=== PATIENT | female | born 1990 | race Caucasian/White ===

== ENCOUNTER 2017-12-13 05:19 | Inpatient (IN) | payer BC, OTHER ==
[2017-12-13] MEDS ORDERED: Sodium Chloride 0.9% 10 ML Syringe FLUSH PRN (05:29)
[2017-12-13] MEDS ORDERED: ceFAZolin 2 GM in Premix Bag 1 BAG IV ONE (05:29)
[2017-12-13] MEDS ORDERED: Sodium Chloride 0.9% 2.5 ML Syringe FLUSH PRN (05:29)
[2017-12-13] MEDS ORDERED: Lactated Ringers 1,000 ML IV SCH ×2 (05:30→10:30)
[2017-12-13] MEDS ORDERED: Citric Acid/Sodium Citrate Solution 30 ML Cup PO SCH (05:30)
[2017-12-13] MEDS ORDERED: Oxytocin/0.9 % Sodium Chloride 30 UNIT/500 ML BAG IV SCH (05:30)
--- NOTE | 2017-12-13 08:52 | PCM.PREANE ---
Preanesthetic Assessment - Anesthesia/Transfusion/Family Hx Anesthesia History: Prior Anesthesia Without Reaction Transfusion History: No Prior Transfusion(s) - Review of Systems General: No Symptoms Pulmonary: No Symptoms Cardiovascular: No Symptoms Gastrointestinal: No Symptoms Neurological: No Symptoms Other: Reports: None - Physical Assessment NPO Status Date: 12/12/17 NPO Status Time: 23:00 Height: 5 ft 5 in Weight: 109.316 kg ASA Class: 2 Mental Status: Alert & Oriented x3 Airway Class: Mallampati = 2 Dentition: Reports: Normal Dentition Thyro-Mental Finger Breadths: 3 Mouth Opening Finger Breadths: 3 ROM/Head Extension: Full Lungs: Clear to Auscultation, Normal Respiratory Effort Cardiovascular: Regular Rate, Regular Rhythm - Lab Values: Laboratory Last Values WBC 9.82 K/uL (4.0-11.0) 12/13/17 05:48 RBC 4.48 M/uL (4.30-5.90) 12/13/17 05:48 Hgb 13.3 g/dL (12.0-16.0) 12/13/17 05:48 Hct 38.7 % (36.0-46.0) 12/13/17 05:48 MCV 86.4 fL (80.0-98.0) 12/13/17 05:48 MCH 29.7 pg (27.0-32.0) 12/13/17 05:48 MCHC 34.4 g/dL (31.0-37.0) 12/13/17 05:48 RDW Std Deviation 43.5 fl (28.0-62.0) 12/13/17 05:48 RDW Coeff of Aureliano 14 % (11.0-15.0) 12/13/17 05:48 Plt Count 194 K/uL (150-400) 12/13/17 05:48 MPV 10.10 fL (7.40-12.00) 12/13/17 05:48 Nucleated RBC % 0.0 /100WBC 12/13/17 05:48 Nucleated RBCs # 0 K/uL 12/13/17 05:48 Blood Type O POSITIVE 12/13/17 05:48 Antibody Screen NEGATIVE 12/13/17 05:48 - Allergies Allergies/Adverse Reactions: Allergies Allergy/AdvReac Type Severity Reaction Status Date / Time Penicillins Allergy Hives Verified 12/13/17 05:28 Sulfa (Sulfonamide Allergy Hives Verified 12/13/17 05:28 Antibiotics) - Acknowledgements Anesthesia Type Planned: Spinal (duramorph) Pt an Appropriate Candidate for the Planned Anesthesia: Yes Alternatives and Risks of Anesthesia Discussed w Pt/Guardian: Yes Pt/Guardian Understands and Agrees with Anesthesia Plan: Yes PreAnesthesia Questionnaire HEENT History: Reports: None Cardiovascular History: Reports: None Respiratory History: Reports: Asthma Other Respiratory History: sports induced asthma Gastrointestinal History: Reports: GERD, Irritable Bowel Syndrome, Other (See Below) Other Gastrointestinal History: heartburn during Genitourinary History: Reports: None BODY SHOP MANAGER History: Reports: None, : 1 Para: 0 LMP (Approximate): Other (See Below) (NO FHR NOTED ON ADMISSION FOR ) Musculoskeletal History: Reports: Fracture Other Musculoskeletal History: hx fx elbow Neurological History: Reports: Concussion Psychiatric History: Reports: None Endocrine/Metabolic History: Reports: Obesity/BMI 30+ Hematologic History: Reports: None Immunologic History: Reports: None Oncologic (Cancer) History: Reports: None Dermatologic History: Reports: Eczema - Infectious Disease History Infectious Disease History: Reports: None - Past Surgical History Head Surgeries/Procedures: Reports: None GI Surgical History: Reports: Appendectomy Musculoskeletal Surgical History: Reports: Other (See Below) Other Musculoskeletal Surgeries/Procedures:: hx rt ankle reconstruction x2, 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 - SUBSTANCE USE Smoking Status *Q: Never Smoker Recreational Drug Use History: No - HOME MEDS Home Medications: Home Meds Juice Plus 1 tab PO DAILY 12/10/17 [History] PNV95/Ferrous Fumarate/FA [ Vitamin Tablet] 1 tab CHEW DAILY 12/10/17 [ History] - CURRENT (IN HOUSE) MEDS Current Meds: Current Medications Citric Acid/Sodium Citrate (Bicitra Solution) 30 ml PO .ONCE [facility] Lactated Ringer's (Ringers, Lactated) 1,000 mls @ 500 mls/hr IV .BOLUS [facility] Last Admin: 12/13/17 06:08 Dose: 500 mls/hr Oxytocin/Sodium Chloride (Oxytocin 30 Unit/500 Ml-Ns) 30 unit in 500 mls @ 250 mls/hr IV TITRATE [facility] Sodium Chloride (Saline Flush) 10 ml FLUSH ASDIRECTED PRN PRN Reason: Keep Vein Open Sodium Chloride (Saline Flush) 2.5 ml FLUSH ASDIRECTED PRN PRN Reason: Keep Vein Open Discontinued Medications Cefazolin Sodium/Dextrose 2 gm (/ Premix) 50 mls @ 100 mls/hr IV ONETIME ONE Stop: 12/13/17 05:58
[2017-12-13] MEDS ORDERED: Clindamycin Phosphate in D5W 50 ML IV ONE (08:54)
[2017-12-13] MEDS ORDERED: Morphine PF 1 MG/ML Amp ONE (09:00)
[2017-12-13] MEDS ORDERED: Phenylephrine/Normal Saline 100 MCG/ML 10 ML Syringe ONE (09:21)
[2017-12-13] MEDS ORDERED: Phenylephrine 1% 10 MG/ML SDV ONE (09:21)
[2017-12-13] MEDS ORDERED: Ondansetron 4 MG/2 ML SDV ONE (09:24)
[2017-12-13] MEDS ORDERED: Oxytocin 10 Units/1 ML SDV ONE (09:31)
[2017-12-13] MEDS ORDERED: Acetaminophen/oxyCODONE 325-5 MG Tab PO PRN ×2 (10:17→10:21)
[2017-12-13] MEDS ORDERED: Nalbuphine 10 MG/1 ML Vial IVPUSH PRN (10:18)
[2017-12-13] MEDS ORDERED: Naloxone 0.4 MG/ML Syringe IVPUSH PRN (10:18)
[2017-12-13] MEDS ORDERED: diphenhydrAMINE 50 MG/ML SDV IVPUSH PRN ×2 (10:18→10:21)
[2017-12-13] MEDS ORDERED: fentaNYL 100 MCG/2 ML SDV IVPUSH PRN (10:18)
[2017-12-13] MEDS ORDERED: Aluminum Hydroxide/Magnesium Hydroxide/Simethicone Susp 30 ML Cup PO PRN (10:21)
[2017-12-13] MEDS ORDERED: Simethicone 80 MG Tab.Chew PO PRN (10:21)
[2017-12-13] MEDS ORDERED: Ondansetron 4 MG/2 ML SDV IV PRN (10:21)
[2017-12-13] MEDS ORDERED: Ibuprofen 800 MG Tab PO PRN (10:21)
[2017-12-13] MEDS ORDERED: Bisacodyl 10 MG Supp RECTAL PRN (10:21)
[2017-12-13] MEDS ORDERED: Lanolin 100% Cream 7 GM Tube TOP PRN (10:21)
--- NOTE | 2017-12-13 10:36 | PCM.OPNOTE ---
- General Post-Op/Procedure Note Date of Surgery/Procedure: 12/13/17 Operative Procedure(s): Primary LTCS Findings: Non viable term male , APGARs 0, 0 weight is pending. Placenta appeared intact. Meconium stained amniotic fluid. There was a loose nuchal cord (do not believe etiology for demise) Pre Op Diagnosis: 39 week IUP. Suspected macrosomia/polyhydramnios. demise Post-Op Diagnosis: Same Anesthesia Technique: Spinal Primary Surgeon: Pati Rivera Pathology: placenta to path Fluid Replacement, Intraop: 1,000 EBL in mLs: 600 Complications: None known Condition: Good Free Text/Narrative:: Dictation [id number]
[2017-12-13] MEDS: Ketorolac 30 MG/ML SDV IVPUSH SCH ×3 (11:10→22:21)
[2017-12-13] MEDS ORDERED: Scopolamine 1.5 MG Transdermal Patch TRDERM PRN (12:33)
--- NOTE | 2017-12-13 13:10 | PCM.POSTAN ---
POST ANESTHESIA ASSESSMENT - MENTAL STATUS Mental Status: Alert, Oriented - RESPIRATORY Respiratory Status: Respiratory Rate WNL, Airway Patent, O2 Saturation Stable - CARDIOVASCULAR CV Status: Pulse Rate WNL, Blood Pressure Stable - GASTROINTESTINAL GI Status: No Symptoms - POST OP HYDRATION Hydration Status: Adequate & Stable
--- NOTE | 2017-12-13 17:06 | US ---
EXAM DATE: 12/13/17 PATIENT'S AGE: 27 Patient: VALERIE KIRKPATRICK Facility: [place], [place] Site . Site : [id number] Study: US OB Pelvis [id number]/16/2018 7:01:04 AM Ordering Physician: Miguel Krueger Final Report: HISTORY: No heart tones. FINDINGS: A single static image of head and 3 cine series of the chest were obtained. Study was performed with ordering physician at the bedside. No cardiac motion is identified on submitted images. IMPRESSION: No cardiac motion identified on submitted images suspicious for demise. Dictated by Jana Patel MD @ 12/13/2017 7:29:39 AM Dictated by: Jana Patel MD @ 12/13/2017 07:29:59 (Electronic Signature) Report Signed by Proxy. [facility]
[2017-12-13] MEDS ORDERED: Promethazine 25 MG/ML SDV IM ONE (18:33)
--- NOTE | 2017-12-13 18:43 | PCM.SN ---
- Free Text/Narrative Note: Patient is struggling with nausea, otherwise pain is controlled. Family has been here and supportive. is in the room with family. Has good urine output and VS are stable. Has a scopolamine patch on and has had zofran. Will trial phenergan. Continue postoperative cares. Pastoral services coming soon. They have made arrangements with [facility]. They are doing well overall and grieving appropriately.
[2017-12-13] MEDS: Docusate Sodium 100 MG Cap PO SCH (22:21)
[2017-12-14] MEDS: Ketorolac 30 MG/ML SDV IVPUSH SCH ×3 (04:45→18:56)
--- NOTE | 2017-12-14 09:38 | PCM.PNPP ---
- General Info Date of Service: 12/21/17 Subjective Update: Patient is tearful this morning. She did rest some last night. Pastoral services came in and baptized her son, which she appreciated. She denies headaches or visual changes. She has been up in her room. Catheter removed, but has not voided yet. Lochia is dissipating. Pain is controlled. Nausea is resolved and tolerating regular diet. - Review of Systems General: Denies: Fever Pulmonary: Denies: Shortness of Breath Cardiovascular: Denies: Chest Pain, Palpitations, Lightheadedness Gastrointestinal: Reports: Flatus. Denies: Nausea, Vomiting Genitourinary: Denies: Flank Pain - General Info Date of Service: 12/14/17 - Patient Data Vital Signs - Most Recent: Last Vital Signs Temp 36.2 C 12/13/17 20:00 Pulse 74 12/14/17 08:00 Resp 16 12/14/17 08:00 BP 128/78 12/14/17 08:00 Pulse Ox 97 12/14/17 08:00 Weight - Most Recent: 109.316 kg I&O - Last 24 Hours: Intake & Output 12/13/17 12/14/17 12/14/17 22:59 06:59 14:59 Intake Total 1311 Output Total 1261 Balance 50 Lab Results - Last 24 Hours: Laboratory Results - last 24 hr 12/13/17 12/13/17 12/13/17 Range/Units 10:30 10:30 10:30 WBC (4.0-11.0) K/uL RBC (4.30-5.90) M/uL Hgb (12.0-16.0) g/dL Hct (36.0-46.0) % MCV (80.0-98.0) fL MCH (27.0-32.0) pg MCHC (31.0-37.0) g/dL RDW Std Deviation (28.0-62.0) fl RDW Coeff of Aureliano (11.0-15.0) % Plt Count (150-400) K/uL MPV (7.40-12.00) fL Neut % (Auto) (48.0-80.0) % Lymph % (Auto) (16.0-40.0) % [place] % (Auto) (0.0-15.0) % Eos % (Auto) (0.0-7.0) % Baso % (Auto) (0.0-1.5) % Neut # (Auto) (1.4-5.7) K/uL Lymph # (Auto) (0.6-2.4) K/uL [place] # (Auto) (0.0-0.8) K/uL Eos # (Auto) (0.0-0.7) K/uL Baso # (Auto) (0.0-0.1) K/uL Nucleated RBC % /100WBC Nucleated RBCs # K/uL INR 0.93 APTT 28.0 (18.6-31.3) SEC Fibrinogen 450 H (215-411) mg/dL BUN 6 (6.0-23.0) mg/dL Hemoglobin A1c 5.3 (4.5-6.2) % TSH 3rd Generation 2.15 (0.47-5.0) uIU/mL 12/14/17 Range/Units 06:02 WBC 11.79 H (4.0-11.0) K/uL RBC 3.38 L (4.30-5.90) M/uL Hgb 9.9 L (12.0-16.0) g/dL Hct 29.7 L (36.0-46.0) % MCV 87.9 (80.0-98.0) fL MCH 29.3 (27.0-32.0) pg MCHC 33.3 (31.0-37.0) g/dL RDW Std Deviation 46.2 (28.0-62.0) fl RDW Coeff of Aureliano 14 (11.0-15.0) % Plt Count 185 (150-400) K/uL MPV 9.90 (7.40-12.00) fL Neut % (Auto) 79.8 (48.0-80.0) % Lymph % (Auto) 10.5 L (16.0-40.0) % [place] % (Auto) 9.4 (0.0-15.0) % Eos % (Auto) 0.2 (0.0-7.0) % Baso % (Auto) 0.1 (0.0-1.5) % Neut # (Auto) 9.4 H (1.4-5.7) K/uL Lymph # (Auto) 1.2 (0.6-2.4) K/uL [place] # (Auto) 1.1 H (0.0-0.8) K/uL Eos # (Auto) 0.0 (0.0-0.7) K/uL Baso # (Auto) 0.0 (0.0-0.1) K/uL Nucleated RBC % 0.0 /100WBC Nucleated RBCs # 0 K/uL INR APTT (18.6-31.3) SEC Fibrinogen (215-411) mg/dL BUN (6.0-23.0) mg/dL Hemoglobin A1c (4.5-6.2) % TSH 3rd Generation (0.47-5.0) uIU/mL Med Orders - Current: Current Medications Al Hydroxide/Mg Hydroxide (Mag-Al Plus) 30 ml PO Q8H PRN PRN Reason: Heartburn Bisacodyl (Dulcolax) 10 mg RECTAL .ONCE PRN PRN Reason: Constipation Citric Acid/Sodium Citrate (Bicitra Solution) 30 ml PO .ONCE [facility] Last Admin: 12/13/17 09:02 Dose: 30 ml Diphenhydramine HCl (Benadryl) 25 - 50 mg IVPUSH Q4H PRN PRN Reason: Itching Stop: 12/14/17 10:20 Diphenhydramine HCl (Benadryl) 25 mg IVPUSH Q6H PRN PRN Reason: Itching or Nausea Docusate Sodium (Colace) 100 mg PO BID [facility] Last Admin: 12/13/17 22:21 Dose: 100 mg Emollient Ointment (Lansinoh Hpa) 0 gm TOP ASDIRECTED PRN PRN Reason: Sore Nipples Fentanyl (Sublimaze) 50 - 100 mcg IVPUSH Q30M PRN PRN Reason: Breakthrough Pain Stop: 12/14/17 10:18 Lactated Ringer's (Ringers, Lactated) 1,000 mls @ 500 mls/hr IV .BOLUS [facility] Last Admin: 12/13/17 06:08 Dose: 500 mls/hr Oxytocin/Sodium Chloride (Oxytocin 30 Unit/500 Ml-Ns) 30 unit in 500 mls @ 250 mls/hr IV TITRATE [facility] Lactated Ringer's (Ringers, Lactated) 1,000 mls @ 125 mls/hr IV ASDIRECTED [facility] Ibuprofen (Motrin) 800 mg PO Q8H PRN PRN Reason: mild pain or fever Ketorolac Tromethamine (Toradol) 30 mg IVPUSH Q6H [facility]SES Stop: 12/14/17 10:31 Last Admin: 12/14/17 04:45 Dose: 30 mg Nalbuphine HCl (Nubain) 2.5 - 10 mg IVPUSH Q3H PRN PRN Reason: Pruritis Stop: 12/14/17 10:19 Naloxone HCl (Narcan) 0.1 mg IVPUSH ONETIME PRN PRN Reason: Respiratory Depression Stop: 12/14/17 10:20 Ondansetron HCl (Zofran) 4 mg IV Q4H PRN PRN Reason: Nausea/Vomiting Last Admin: 12/13/17 15:42 Dose: 4 mg Oxycodone/Acetaminophen (Percocet 325-5 Mg) 1 - 2 tab PO Q4H PRN PRN Reason: Breakthrough Pain Stop: 12/14/17 10:15 Oxycodone/Acetaminophen (Percocet 325-5 Mg) 1 tab PO Q4H PRN PRN Reason: Pain (moderate 4-6) Oxycodone/Acetaminophen (Percocet 325-5 Mg) 2 tab PO Q4H PRN PRN Reason: Pain (moderate 4-6) Scopolamine (Transderm-Scop) 1.5 mg TRDERM Q72H PRN PRN Reason: Nausea/Vomiting Last Admin: 12/13/17 13:14 Dose: 1.5 mg Simethicone (Simethicone) 80 mg PO Q4H PRN PRN Reason: Gas Sodium Chloride (Saline Flush) 10 ml FLUSH ASDIRECTED PRN PRN Reason: Keep Vein Open Sodium Chloride (Saline Flush) 2.5 ml FLUSH ASDIRECTED PRN PRN Reason: Keep Vein Open Discontinued Medications Cefazolin Sodium/Dextrose 2 gm (/ Premix) 50 mls @ 100 mls/hr IV ONETIME ONE Stop: 12/13/17 05:58 Last Admin: 12/13/17 11:30 Dose: Not Given Clindamycin Phosphate (Cleocin In D5w) Confirm Administered Dose 50 mls @ as directed IV .STK-MED ONE Stop: 12/13/17 08:55 Last Admin: 12/13/17 11:30 Dose: Not Given Morphine Sulfate (Duramorph Pf) Confirm Administered Dose 1 mg .ROUTE .STK-MED ONE Stop: 12/13/17 09:01 Ondansetron HCl (Zofran) Confirm Administered Dose 4 mg .ROUTE .STK-MED ONE Stop: 12/13/17 09:25 Oxytocin (Pitocin) Confirm Administered Dose 20 unit .ROUTE .STK-MED ONE Stop: 12/13/17 09:32 Phenylephrine HCl (Phenylephrine In Ns 100 Mcg/Ml) Confirm Administered Dose 1 mg .ROUTE .STK-MED ONE Stop: 12/13/17 09:22 Phenylephrine HCl (Dilshad-Synephrine) Confirm Administered Dose 10 mg .ROUTE .STK- MED ONE Stop: 12/13/17 09:22 Promethazine HCl (Phenergan) 12.5 mg IM ONETIME ONE Stop: 12/13/17 18:34 Last Admin: 12/13/17 19:46 Dose: 12.5 mg - Interaction Disposition, : [place] in Room with Family Support Person: - Recovery Exam Fundal Tone: Firm Fundal Level: 2 Fingerbreadths Below Umbilicus Fundal Placement: Midline Lochia Amount: Small Lochia Color: Rubra/Red Perineum Description: Intact, Minimal Bruising/Swelling Episiotomy/Laceration: Approximated Bladder Status: Indwelling Catheter in Place Urinary Elimination: Indwelling Catheter - Exam General: Alert, Oriented Lungs: Normal Respiratory Effort Cardiovascular: Regular Rate, Regular Rhythm GI/Abdominal Exam: Normal Bowel Sounds, Soft. No: Guarding, Rebound Extremities: Pedal Edema (1+). No: Harsha's Sign Neurological: Reflexes Equal Bilateral (not hyperreflexic, no clonus) Psy/Mental Status: Alert - Problem List & Annotations (1) demise in romero greater than 22 weeks gestation, antepartum SNOMED Code(s): 97841457 Code(s): O36.4XX0 - MATERNAL CARE FOR INTRAUTERINE , NOT APPLICABLE OR UNSP Status: Acute Current Visit: Yes - Problem List Review Problem List Initiated/Reviewed/Updated: Yes - My Orders Last 24 Hours: My Active Orders 12/13/17 10:21 Patient Status [ADT] Routine Ambulate [RC] PER UNIT ROUTINE Communication Order [RC] PER UNIT ROUTINE May Shower [RC] ASDIRECTED Notify Provider Intake and Out [RC] ASDIRECTED Notify Provider Vital Signs [RC] ASDIRECTED RT Incentive Spirometry [RC] Q2HWA Acetaminophen/oxyCODONE [Percocet 325-5 MG] 1 tab PO Q4H PRN Acetaminophen/oxyCODONE [Percocet 325-5 MG] 2 tab PO Q4H PRN Alum Hydrox/Mag Hydrox/Simeth [Mag-Al Plus] 30 ml PO Q8H PRN Bisacodyl [Dulcolax] 10 mg RECTAL .ONCE PRN Ibuprofen [Motrin] 800 mg PO Q8H PRN Lanolin [Lansinoh HPA] See Dose Instructions TOP ASDIRECTED PRN Ondansetron [Zofran] 4 mg IV Q4H PRN Simethicone 80 mg PO Q4H PRN diphenhydrAMINE [Benadryl] 25 mg IVPUSH Q6H PRN Abdominal Binder [OM.PC] Routine Assess Lochia [WOMSER] Per Unit Routine Assess Uterine Involution [WOMSER] Per Unit Routine Breast Pump [WOMSER] Per Unit Routine Heat Therapy [OM.PC] Routine Ice Therapy [OM.PC] Routine Peripheral IV Discontinue [OM.PC] Routine Sequential Compression Device [OM.PC] Per Unit Routine 12/13/17 10:22 Antiembolic Devices [RC] PER UNIT ROUTINE 12/13/17 10:30 ANTICARDIOLIPIN AB PANEL IGG/M [REF] Routine ANTITHROMBIN III ACTIVITY [REF] Routine FACTOR 5 LEIDEN MUTATION [REF] Routine LUPUS ANTICOAGULANT PANEL [REF] Routine PARVOVIRUS B19 IGG AND IGM [REF] Routine PROTHROMBIN 45340 MUTATION [REF] Routine RPR [REF] Routine Ketorolac [Toradol] 30 mg IVPUSH Q6H Lactated Ringers [Ringers, Lactated] 1,000 ml IV ASDIRECTED 12/13/17 15:13 CHROMO ANALYSIS, POC Routine 12/13/17 21:00 Docusate Sodium [Colace] 100 mg PO BID 12/14/17 06:02 CMP [COMPREHENSIVE METABOLIC PN,CMP] [CHEM] Routine 12/14/17 Breakfast Regular Diet [DIET] - Assessment Assessment:: POD 1 status post c section demise - Plan Plan:: Blood presssures elevated yesterday and through the night, improved today in 120s/70s. CBC is reassuring, will add CMP and UA to analysis. Ambulate today, may shower. Will reevaluate later this afternoon--patient very much would like to go home later today. If PIH work up is reassuring and blood pressures remain stable, will consider this option.
[2017-12-14 09:47] LABS: CHLORIDE,CL 104 mmol/L (98-110); SODIUM,NA 136 mmol/L (136-146)
[2017-12-14] MEDS: Docusate Sodium 100 MG Cap PO SCH (12:14)
[2017-12-14] MEDS: Acetaminophen/oxyCODONE 325-5 MG Tab PO PRN ×2 (12:56→19:18)
--- NOTE | 2017-12-14 15:21 | PCM48HPAN ---
Post Anesthesia Note - EVALUATION WITHIN 48HRS OF ANESTHETIC Vital Signs in Normal Range: Yes Patient Participated in Evaluation: Yes Respiratory Function Stable: Yes Airway Patent: Yes Cardiovascular Function Stable: Yes Hydration Status Stable: Yes Pain Control Satisfactory: Yes Nausea and Vomiting Control Satisfactory: Yes Mental Status Recovered: Yes Resp Rate: 16 - COMMENTS/OBSERVATIONS Free Text/Narrative:: Pt denies any problems associated with SAB. She has been ambulatory with no problems. Pt has appropriate affect for current situation. Pt has and other family member present and plans to d/c home this evening.
--- NOTE | 2017-12-14 17:55 | PCM.PNPP ---
- General Info Date of Service: 12/14/17 Functional Status: Reports: Pain Controlled, Tolerating Diet, Ambulating, Urinating - Review of Systems General: Denies: Fever, Weakness Pulmonary: Denies: Shortness of Breath Cardiovascular: Denies: Chest Pain, Palpitations, Lightheadedness Gastrointestinal: Reports: Flatus. Denies: Nausea, Vomiting Genitourinary: Denies: Flank Pain Skin: Reports: No Symptoms Psychiatric: Reports: No Symptoms - General Info Date of Service: 12/14/17 - Patient Data Vital Signs - Most Recent: Last Vital Signs Temp 36.2 C 12/13/17 20:00 Pulse 74 12/14/17 08:00 Resp 16 12/14/17 15:21 BP 128/78 12/14/17 08:00 Pulse Ox 97 12/14/17 08:00 Weight - Most Recent: 109.316 kg Lab Results - Last 24 Hours: Laboratory Results - last 24 hr 12/14/17 12/14/17 12/14/17 Range/Units 06:02 06:02 13:00 WBC 11.79 H (4.0-11.0) K/uL RBC 3.38 L (4.30-5.90) M/uL Hgb 9.9 L (12.0-16.0) g/dL Hct 29.7 L (36.0-46.0) % MCV 87.9 (80.0-98.0) fL MCH 29.3 (27.0-32.0) pg MCHC 33.3 (31.0-37.0) g/dL RDW Std Deviation 46.2 (28.0-62.0) fl RDW Coeff of Aureliano 14 (11.0-15.0) % Plt Count 185 (150-400) K/uL MPV 9.90 (7.40-12.00) fL Neut % (Auto) 79.8 (48.0-80.0) % Lymph % (Auto) 10.5 L (16.0-40.0) % [place] % (Auto) 9.4 (0.0-15.0) % Eos % (Auto) 0.2 (0.0-7.0) % Baso % (Auto) 0.1 (0.0-1.5) % Neut # (Auto) 9.4 H (1.4-5.7) K/uL Lymph # (Auto) 1.2 (0.6-2.4) K/uL [place] # (Auto) 1.1 H (0.0-0.8) K/uL Eos # (Auto) 0.0 (0.0-0.7) K/uL Baso # (Auto) 0.0 (0.0-0.1) K/uL Nucleated RBC % 0.0 /100WBC Nucleated RBCs # 0 K/uL Sodium 136 (136-146) mmol/L Potassium 5.1 (3.5-5.1) mmol/L Chloride 104 (98-110) mmol/L Carbon Dioxide 24 (21-31) mmol/L BUN 14 (6.0-23.0) mg/dL Creatinine 0.8 (0.6-1.5) mg/dL Est Cr Clr Drug Dosing 93.37 mL/min Estimated GFR (MDRD) > 60.0 ml/min Glucose 106 (60-110) mg/dL Calcium 9.0 (8.8-10.8) mg/dL Total Bilirubin 0.5 (0.1-1.5) mg/dL AST 19 (5-40) IU/L ALT 15 (8-54) IU/L Alkaline Phosphatase 91 (40-150) Total Protein 5.1 L (6.0-8.0) g/dL Albumin 2.8 L (3.5-5.0) g/dL Globulin 2.3 (2.0-3.5) g/dL Albumin/Globulin Ratio 1.2 L (1.3-2.8) Urine Color YELLOW Urine Appearance CLEAR Urine pH 6.0 (5.0-8.0) Ur Specific [place] <= 1.005 (1.001-1.035) Urine Protein NEGATIVE (NEGATIVE) mg/dL Urine Glucose (UA) NEGATIVE (NEGATIVE) mg/dL Urine Ketones NEGATIVE (NEGATIVE) mg/dL Urine Occult Blood SMALL H (NEGATIVE) Urine Nitrite NEGATIVE (NEGATIVE) Urine Bilirubin NEGATIVE (NEGATIVE) Urine Urobilinogen 0.2 (<2.0) EU/dL Ur Leukocyte Esterase NEGATIVE (NEGATIVE) Med Orders - Current: Current Medications Al Hydroxide/Mg Hydroxide (Mag-Al Plus) 30 ml PO Q8H PRN PRN Reason: Heartburn Bisacodyl (Dulcolax) 10 mg RECTAL .ONCE PRN PRN Reason: Constipation Citric Acid/Sodium Citrate (Bicitra Solution) 30 ml PO .ONCE [facility] Last Admin: 12/13/17 09:02 Dose: 30 ml Diphenhydramine HCl (Benadryl) 25 mg IVPUSH Q6H PRN PRN Reason: Itching or Nausea Docusate Sodium (Colace) 100 mg PO BID [facility] Last Admin: 12/14/17 12:14 Dose: 100 mg Emollient Ointment (Lansinoh Hpa) 0 gm TOP ASDIRECTED PRN PRN Reason: Sore Nipples Lactated Ringer's (Ringers, Lactated) 1,000 mls @ 500 mls/hr IV .BOLUS [facility] Last Admin: 12/13/17 06:08 Dose: 500 mls/hr Oxytocin/Sodium Chloride (Oxytocin 30 Unit/500 Ml-Ns) 30 unit in 500 mls @ 250 mls/hr IV TITRATE [facility] Lactated Ringer's (Ringers, Lactated) 1,000 mls @ 125 mls/hr IV ASDIRECTED [facility] Ibuprofen (Motrin) 800 mg PO Q8H PRN PRN Reason: mild pain or fever Last Admin: 12/14/17 12:55 Dose: 800 mg Ondansetron HCl (Zofran) 4 mg IV Q4H PRN PRN Reason: Nausea/Vomiting Last Admin: 12/13/17 15:42 Dose: 4 mg Oxycodone/Acetaminophen (Percocet 325-5 Mg) 1 tab PO Q4H PRN PRN Reason: Pain (moderate 4-6) Last Admin: 12/14/17 12:56 Dose: 1 tab Oxycodone/Acetaminophen (Percocet 325-5 Mg) 2 tab PO Q4H PRN PRN Reason: Pain (moderate 4-6) Scopolamine (Transderm-Scop) 1.5 mg TRDERM Q72H PRN PRN Reason: Nausea/Vomiting Last Admin: 12/13/17 13:14 Dose: 1.5 mg Simethicone (Simethicone) 80 mg PO Q4H PRN PRN Reason: Gas Sodium Chloride (Saline Flush) 10 ml FLUSH ASDIRECTED PRN PRN Reason: Keep Vein Open Sodium Chloride (Saline Flush) 2.5 ml FLUSH ASDIRECTED PRN PRN Reason: Keep Vein Open Discontinued Medications Diphenhydramine HCl (Benadryl) 25 - 50 mg IVPUSH Q4H PRN PRN Reason: Itching Stop: 12/14/17 10:20 Fentanyl (Sublimaze) 50 - 100 mcg IVPUSH Q30M PRN PRN Reason: Breakthrough Pain Stop: 12/14/17 10:18 Cefazolin Sodium/Dextrose 2 gm (/ Premix) 50 mls @ 100 mls/hr IV ONETIME ONE Stop: 12/13/17 05:58 Last Admin: 12/13/17 11:30 Dose: Not Given Clindamycin Phosphate (Cleocin In D5w) Confirm Administered Dose 50 mls @ as directed IV .STK-MED ONE Stop: 12/13/17 08:55 Last Admin: 12/13/17 11:30 Dose: Not Given Ketorolac Tromethamine (Toradol) 30 mg IVPUSH Q6H RAMSES Stop: 12/14/17 10:31 Last Admin: 12/14/17 04:45 Dose: 30 mg Morphine Sulfate (Duramorph Pf) Confirm Administered Dose 1 mg .ROUTE .STK-MED ONE Stop: 12/13/17 09:01 Nalbuphine HCl (Nubain) 2.5 - 10 mg IVPUSH Q3H PRN PRN Reason: Pruritis Stop: 12/14/17 10:19 Naloxone HCl (Narcan) 0.1 mg IVPUSH ONETIME PRN PRN Reason: Respiratory Depression Stop: 12/14/17 10:20 Ondansetron HCl (Zofran) Confirm Administered Dose 4 mg .ROUTE .STK-MED ONE Stop: 12/13/17 09:25 Oxycodone/Acetaminophen (Percocet 325-5 Mg) 1 - 2 tab PO Q4H PRN PRN Reason: Breakthrough Pain Stop: 12/14/17 10:15 Oxytocin (Pitocin) Confirm Administered Dose 20 unit .ROUTE .STK-MED ONE Stop: 12/13/17 09:32 Phenylephrine HCl (Phenylephrine In Ns 100 Mcg/Ml) Confirm Administered Dose 1 mg .ROUTE .STK-MED ONE Stop: 12/13/17 09:22 Phenylephrine HCl (Dilshad-Synephrine) Confirm Administered Dose 10 mg .ROUTE .STK- MED ONE Stop: 12/13/17 09:22 Promethazine HCl (Phenergan) 12.5 mg IM ONETIME ONE Stop: 12/13/17 18:34 Last Admin: 12/13/17 19:46 Dose: 12.5 mg - Infant Interaction Infant Disposition, : in Room with Family Support Person: - Recovery Exam Fundal Tone: Firm Fundal Level: 2 Fingerbreadths Below Umbilicus Fundal Placement: Midline Lochia Amount: Small Lochia Color: Rubra/Red Perineum Description: Intact, Minimal Bruising/Swelling Episiotomy/Laceration: Approximated Bladder Status: Indwelling Catheter in Place Urinary Elimination: Indwelling Catheter - Exam General: Alert, Oriented Lungs: Normal Respiratory Effort Cardiovascular: Regular Rate, Regular Rhythm GI/Abdominal Exam: Normal Bowel Sounds, Soft Extremities: Pedal Edema (1+). No: Harsha's Sign Skin: Warm, Dry, Intact Wound/Incisions: Healing Well, No Drainage. No: Erythema Psy/Mental Status: Alert - Problem List & Annotations (1) demise in romero greater than 22 weeks gestation, antepartum SNOMED Code(s): 60113442 Code(s): O36.4XX0 - MATERNAL CARE FOR INTRAUTERINE , NOT APPLICABLE OR UNSP Status: Acute Current Visit: Yes - Problem List Review Problem List Initiated/Reviewed/Updated: Yes - My Orders Last 24 Hours: My Active Orders 12/13/17 21:00 Docusate Sodium [Colace] 100 mg PO BID 12/14/17 17:50 Ready for Discharge [RC] PER UNIT ROUTINE 12/14/17 Breakfast Regular Diet [DIET] - Assessment Assessment:: POD 1 status post c section demise - Plan Plan:: Patient is ready to go home. PIH labs are normal. She agrees to rest tonight and tomorrow. home has been here to receive infant. Discharge instructions reviewed. Follow up at 2 and 6 weeks at [facility]. Infection and bleeding warnings reviewed. Discharge instructions reviewed. Typical grief reaction discussed. Will monitor patient closely in period. Have received short term disbility paperwork to fill out for patient. Discharge to home.
--- NOTE | 2017-12-17 12:08 | OR ---
SURGEON: Pati Rivera M.D. DATE OF PROCEDURE: 12/13/2017 PREOPERATIVE DIAGNOSES: 1. A 39-week . 2. Suspected macrosomia. 3. Polyhydramnios. 4. demise. POSTOPERATIVE DIAGNOSES: 1. A 39-week . 2. Suspected macrosomia. 3. Polyhydramnios. 4. demise. PROCEDURE: Primary low transverse section via Pfannenstiel skin incision. ANESTHESIA: Spinal. ESTIMATED BLOOD LOSS: 600 mL. FLUID: Intraop 1000 mL crystalloid. COMPLICATIONS: None known. FINDINGS: Nonviable term male infant, Apgars 0 at 1 minute and 0 at 5 minutes. No gross anomalies noted. Meconium-stained amniotic fluid. The placenta appeared intact. No evidence of abruption. There was a loose nuchal cord, this was not felt to be the etiology for the demise. Normal-appearing pelvis. DISPOSITION: The patient to PACU, stable. remains with her. PROCEDURE DETAILS: Veronica is a 27-year-old, G1, P0, at 39 weeks' gestational age, who was scheduled for a primary section this morning for suspected macrosomia and polyhydramnios. She has been monitored with weekly surveillance, performed a biophysical profile and NSTs given the polyhydramnios. The estimated weight has been anywhere from 6767-5752 g on ultrasound and given her narrow pelvis and the size of the infant, after a thorough discussion, we had elected to proceed with an elective delivery. The patient states that she has noted movement and actually noted movement this morning, as she was entering the shower getting ready to come in for her scheduled . Upon her arrival to Labor and delivery, heart tones were not able to be auscultated. There was a point where nursing staff had felt that there were heart tones auscultated very lightly in the 120s; however, by their description of where they were able to obtain the Doppler tones, this most likely was maternal pulse. Sonogram was directly performed when heart tones were not able to be auscultated, and no cardiac activity was observed in real time. This was confirmed by Dr. Valderrama and myself. Upon discussion with the patient and her as how to proceed, offered induction of labor, given the fact that the most recent ultrasound was a little over 4000 g and with the demise being present; however given that this was a planned delivery, the patient does still have a very narrow pelvis and the is still most likely to be at 4000 g. After discussion, they have opted to proceed with a section as planned. Risks of the procedure have been once again discussed with them. The patient was taken to the operating room where she underwent spinal anesthetic, was placed in dorsal supine position with leftward tilt, SCDs to lower extremities, Kennedy to gravity. She was prepped and draped in the usual sterile fashion. Time-out was performed. Anesthesia was tested and found to be adequate. After being draped in a sterile fashion, a Pfannenstiel skin incision was created and carried down to the level of the rectus fascia, which was incised in midline, lateralized on either side sharply and bluntly. The superior aspect of fascia was tented upward and dissected sharply and bluntly from underlying muscle. In similar fashion, this was performed with the inferior aspect of the fascia. Rectus muscles were in midline. Peritoneum was entered sharply and lateralized bluntly, as well as the rectus muscle. Uterine position and position palpated. Self-retaining retractor was gently placed. Uterovesical reflection was visualized. Bladder flap was created sharply and bluntly. Bladder was mobilized away from lower uterine segment. Low transverse hysterotomy was now performed. Uterine cavity was entered with blunt end of the scalpel. Hysterotomy was lateralized bluntly. Amniotomy was performed. Meconium-stained fluid was noted. Infant's head was flexed and was delivered from the pelvis. Fundal pressure was applied, and the head was delivered followed by anterior, posterior shoulder, and remainder of the body. Cord was clamped x2 and immediately passed off to attending nursing staff, who confirmed demise. Cord blood sampling was obtained. The placenta was now delivered. It does appear to be intact. No evidence of abruption, it will be sent to Pathology for analysis. The uterine cavity was cleared of all clot and debris. Hysterotomy was repaired using 0 Vicryl in continuous running fashion followed by re- imbricating layer. Area of bleeding along the left lateral side was re-plicated with [id number] suture. Hemostasis thereafter evident. Posterior aspect of the uterus inspected, no defects or hematomas found to be forming. Regions were well irrigated and suction dried. Uterus returned to abdominal cavity. Colonic gutters were cleared of all clot and debris, well irrigated and suction dried. The hysterotomy was once again inspected and found to be hemostatic. The uterus remained firm at this time. Self-retaining retractor gently removed. Sponge count was correct at this juncture. A bladder blade was placed. Hysterotomy was again inspected found to be hemostatic. The rectus muscles were reapproximated using 0 Vicryl in inverted mattress suture technique. Anterior aspect of the muscle and posterior aspect of the fascia closely inspected. Any areas of oozing were cauterized. The fascia was reapproximated using 0 Vicryl in continuous running fashion beginning laterally in the side and meeting in the midline. Subcutaneous tissue was well irrigated and suction dried. Any areas of oozing were cauterized. Once again, irrigated the subcutaneous tissue and suction dried. The skin edges were reapproximated using 3-0 Vicryl in subcuticular fashion, and incision was re-imbricated with 1/2-inch Steri-Strips with Mastisol. Uterus remained firm. Sponge, instrument, needle counts correct x3. The patient tolerated the procedure well overall. She is going to go to recovery room in stable condition. Placenta to Pathology. We will plan chromosome analysis with skin biopsy. PEDRITO / ACE /[id number] GUS
== END 2017-12-14 19:55 | disposition home or self-care (01) | DRG 540 ==
LOC: MW.OB 05:19
PROVIDERS: ADMIT Obstetrics & Gynecology; ATTEND Obstetrics & Gynecology
PROC: 10D00Z1 Extraction of Products of Conception, Low, Open Approach (ICD-10-PCS; principal; 2017-12-13)
DX: O36.4XX0 Maternal care for intrauterine death, not applicable or unspecified (principal); O40.3XX0 Polyhydramnios, third trimester, not applicable or unspecified; O36.63X0 Maternal care for excessive fetal growth, third trimester, not applicable or unspecified; R11.0 Nausea; Z3A.39 39 weeks gestation of pregnancy; Z37.1 Single stillbirth
CPT/HCPCS: 01961; 36415; 59025; 76815; 76815-26; 80053; 81003; 81240; 81241; 83036; 84443; 84520; 85025; 85027; 85300; 85384; 85610; 85613; 85730; 86147; 86592; 86747; 86850; 86900; 86901; 88233; 88307; A9270-GY; J1885; J2274; J2370; J2405; J2550; J2590; J7120; P9612

== ENCOUNTER 2019-07-14 05:19 | Inpatient (IN) | payer BC, OTHER ==
[2019-07-14] MEDS ORDERED: Sodium Chloride 0.9% 10 ML Syringe FLUSH PRN (05:42)
[2019-07-14] MEDS ORDERED: Sodium Chloride 0.9% 2.5 ML Syringe FLUSH PRN (05:42)
[2019-07-14] MEDS ORDERED: Citric Acid/Sodium Citrate Solution 30 ML Cup PO ONE (05:42)
[2019-07-14] MEDS ORDERED: Sodium Chloride 0.9% 10 ML SDV IV PRN (05:42)
[2019-07-14] MEDS ORDERED: Oxytocin/0.9 % Sodium Chloride 30 UNIT/500 ML BAG IV SCH (05:45)
[2019-07-14] MEDS ORDERED: Lactated Ringers 1,000 ML IV SCH (05:45)
[2019-07-14] MEDS ORDERED: Clindamycin Phosphate in D5W 900 MG in Premix Bag 1 BAG IV ONE ×2 (06:00)
[2019-07-14] MEDS ORDERED: Oxytocin 10 Units/1 ML SDV ONE ×2 (07:11)
[2019-07-14] MEDS ORDERED: Ondansetron 4 MG/2 ML SDV ONE (07:11)
[2019-07-14] MEDS ORDERED: Phenylephrine/Normal Saline 100 MCG/ML 10 ML Syringe ONE (07:11)
[2019-07-14] MEDS ORDERED: Ketorolac 30 MG/ML SDV ONE (07:14)
[2019-07-14] MEDS ORDERED: Morphine PF 10 MG/10 ML SDV ONE (07:39)
[2019-07-14] MEDS ORDERED: Sodium Chloride 0.9% 20 ML ONE (08:01)
[2019-07-14] MEDS ORDERED: ePHEDrine 50 MG/ML SDV ONE (08:01)
[2019-07-14] MEDS ORDERED: Aluminum Hydroxide/Magnesium Hydroxide/Simethicone Susp 30 ML Cup PO PRN (09:08)
[2019-07-14] MEDS ORDERED: Acetaminophen/oxyCODONE 325-5 MG Tab PO PRN (09:08)
[2019-07-14] MEDS ORDERED: diphenhydrAMINE 50 MG/ML SDV IVPUSH PRN (09:08)
[2019-07-14] MEDS ORDERED: Bisacodyl 10 MG Supp RECTAL PRN (09:08)
[2019-07-14] MEDS ORDERED: Ibuprofen 800 MG Tab PO PRN (09:08)
[2019-07-14] MEDS ORDERED: Lanolin 100% Cream 7 GM Tube TOP PRN (09:08)
[2019-07-14] MEDS: Lactated Ringers 1,000 ML IV SCH ×2 (10:00→16:00)
[2019-07-14] MEDS: Promethazine 25 MG/ML SDV IM PRN ×2 (12:13→20:01)
[2019-07-14] MEDS: Ondansetron 4 MG/2 ML SDV IVPUSH PRN ×2 (12:17→17:16)
--- NOTE | 2019-07-14 13:29 | OR ---
SURGEON: Pati Rivera M.D. DATE OF PROCEDURE: 07/14/2019 PREOPERATIVE DIAGNOSES: 1. A 37-1/7 weeks' intrauterine . 2. Gestational hypertension. 3. Previous section, desires repeat. POSTOPERATIVE DIAGNOSES: 1. A 37-1/7 weeks' intrauterine . 2. Gestational hypertension. 3. Previous section, desires repeat. PROCEDURE: Repeat low-transverse section. PRIMARY SURGEON: Pati Rivera MD. [employer] DEVELOPER: RAMIREZ Trammell. ANESTHESIA: Spinal. ESTIMATED BLOOD LOSS: 600 mL. FLUIDS: 2400 mL of crystalloid. COMPLICATIONS: None known. FINDINGS: Viable male. scores 8 at one minute, 9 at five minutes. Weight of 3080 g. Intact placenta, 3-vessel cord. Normal-appearing pelvis. DISPOSITION: to nursery, mom to PACU. PROCEDURE DETAILS: Veronica is a 28-year-old G2, P0, at 37-1/7 weeks' gestational age, who was admitted on the morning of 07/14/2019 for scheduled repeat delivery. She has dealt with gestational hypertension in the third trimester. She did receive steroids for lung maturity. Risks of procedure have been discussed. Proper consent obtained. The patient was taken to the operating room where she underwent spinal anesthetic, was then placed in the dorsal supine position with leftward tilt. SCDs to lower extremities. Kennedy to gravity. Was prepped and draped in usual sterile fashion. A time-out was performed. Anesthesia was tested, found to be adequate. Received clindamycin prophylactically. Previous Pfannenstiel scar was now excised. Subcutaneous tissue was incised down to the level of the rectus fascia, which was incised in midline and lateralized on either side. Superior aspect of the fascia was tented upward, dissected sharply and bluntly away from underlying muscles. Similar aspect was performed with the inferior aspect of fascia. Rectus muscles were in the midline as well as peritoneum. Rectus muscle and peritoneum were now lateralized bluntly, after being entered. Uterine position and position palpated. Self-retaining retractor now gently placed. Uterovesical reflection was visualized. Bladder flap was created sharply and bluntly. Bladder was mobilized away from the lower uterine segment. A low-transverse hysterotomy was now performed. Uterine cavity was entered with the blunt end of the scalpel. Hysterotomy was extended bluntly laterally. Amniotomy was performed. Clear fluid was returned. The 's head was flexed. Fundal pressure was applied. The 's head was delivered followed by anterior shoulder, posterior shoulder, and remainder of the body without difficulty. The infant's oropharynx and nares were bulb suctioned. Cord was clamped x2 and cut. was crying with good tone, was handed off to attending nursery staff. The cord arterial, cord venous, cord blood sampling obtained. The placenta was now delivered. Uterine cavity was cleared of all clot and debris. Hysterotomy was repaired using 0 Vicryl in continuous running locked fashion followed by a re-imbricating the area. Areas of oozing along the midline in right lateral aspect of the incision were reapproximated with figure- of-eight sutures. Hemostasis thereafter evident. Posterior aspect of the uterus inspected, no defects or hematomas found be forming. Region was well irrigated, suction dried. The colonic gutters were cleared of all clot and debris, well irrigated, suction dried. Hysterotomy once again inspected, found to be hemostatic. Self-retaining retractor now gently removed. Bladder blade was placed. Hysterotomy appears intact. Rectus muscle and peritoneum were now reapproximated using inverted mattress suture technique. Anterior aspect of the muscle, posterior aspect of the fascia closely inspected. Any areas of oozing were cauterized. Rectus fascia was reapproximated using 0 Vicryl in continuous running fashion, beginning laterally on either side and meeting in the midline. Subcutaneous tissue was copiously irrigated. Any areas of oozing were cauterized. Skin edges were reapproximated using 3-0 Vicryl in subcuticular fashion on a Rik needle, re-imbricated with half-inch Steri-Strips and Mastisol. Sponge, instrument, and needle counts were correct x2. The patient tolerated the procedure well overall. Hemostasis appeared evident. The patient will go to PACU in stable condition, to nursery. PEDRITO / ACE /[id number]
[2019-07-14] MEDS: Ketorolac 30 MG/ML SDV IVPUSH SCH ×3 (14:49→20:56)
[2019-07-14] MEDS: Simethicone 80 MG Tab.Chew PO SCH ×2 (19:29→19:59)
[2019-07-14] MEDS: Docusate Sodium 100 MG Cap PO SCH (20:54)
[2019-07-15] MEDS: Simethicone 80 MG Tab.Chew PO SCH ×4 (00:05→20:03)
[2019-07-15] MEDS: Ketorolac 30 MG/ML SDV IVPUSH SCH ×2 (02:58→11:31)
--- NOTE | 2019-07-15 08:43 | PCM.PNPP ---
- General Info Date of Service: 07/15/19 Functional Status: Reports: Pain Controlled, Tolerating Diet, Ambulating, Urinating - Review of Systems General: Reports: Fatigue. Denies: Fever, Weakness Pulmonary: Denies: Shortness of Breath Cardiovascular: Denies: Chest Pain, Palpitations, Lightheadedness Gastrointestinal: Denies: Abdominal Pain, Nausea, Vomiting Genitourinary: Denies: Flank Pain Musculoskeletal: Reports: No Symptoms Skin: Reports: No Symptoms Neurological: Reports: No Symptoms Psychiatric: Reports: No Symptoms - General Info Date of Service: 07/15/19 - Patient Data Vital Signs - Most Recent: Last Vital Signs Temp 36.3 C 07/15/19 07:42 Pulse 69 07/15/19 07:42 Resp 18 07/15/19 07:42 BP 131/82 07/15/19 07:42 Pulse Ox 98 07/15/19 07:42 Weight - Most Recent: 109.769 kg I&O - Last 24 Hours: Intake & Output 07/14/19 07/15/19 07/15/19 22:59 06:59 14:59 Output Total 825 1650 Balance -825 -1650 Lab Results - Last 24 Hours: Laboratory Results - last 24 hr 07/14/19 07/15/19 Range/Units 08:15 06:12 Hgb 10.3 L (12.0-16.0) g/dL Hct 31.3 L (36.0-46.0) % Cord ABG pH (7.18-7.38) Cord ABG Base Excess (-10--2) Cord VBG pH 7.352 (7.25-7.45) Cord VBG Base Excess -3 (-10--2) Med Orders - Current: Current Medications Al Hydroxide/Mg Hydroxide (Mag-Al Plus) 30 ml PO Q8H PRN PRN Reason: Heartburn Bisacodyl (Dulcolax) 10 mg RECTAL ONETIME PRN PRN Reason: Constipation Diphenhydramine HCl (Benadryl) 25 mg IVPUSH Q6H PRN PRN Reason: Itching or Nausea Docusate Sodium (Colace) 100 mg PO BID [facility] Last Admin: 07/14/19 20:54 Dose: 100 mg Emollient Ointment (Lansinoh Hpa) 0 gm TOP ASDIRECTED PRN PRN Reason: Sore Nipples Lactated Ringer's (Ringers, Lactated) 1,000 mls @ 500 mls/hr IV BOLUS [facility] Last Admin: 07/14/19 07:36 Dose: 500 mls/hr Oxytocin/Sodium Chloride (Oxytocin 30 Unit/500 Ml-Ns) 30 unit in 500 mls @ 250 mls/hr IV TITRATE [facility] Lactated Ringer's (Ringers, Lactated) 1,000 mls @ 125 mls/hr IV ASDIRECTED [facility] Last Admin: 07/14/19 16:00 Dose: 125 mls/hr Ibuprofen (Motrin) 800 mg PO Q8H PRN PRN Reason: mild pain or fever Ketorolac Tromethamine (Toradol) 30 mg IVPUSH Q6H [facility] Stop: 07/15/19 09:16 Last Admin: 07/15/19 02:58 Dose: 30 mg Ondansetron HCl (Zofran) 4 mg IVPUSH Q4H PRN PRN Reason: Nausea/Vomiting Last Admin: 07/14/19 17:16 Dose: 4 mg Oxycodone/Acetaminophen (Percocet 325-5 Mg) 1 tab PO Q4H PRN PRN Reason: Pain (moderate 4-6) Oxycodone/Acetaminophen (Percocet 325-5 Mg) 2 tab PO Q4H PRN PRN Reason: Pain (moderate 4-6) Promethazine HCl (Phenergan) 25 mg IM Q6H PRN PRN Reason: Vomiting Last Admin: 07/14/19 20:01 Dose: 25 mg Simethicone (Simethicone) 160 mg PO QID [facility] Last Admin: 07/15/19 00:05 Dose: Not Given Sodium Chloride (Saline Flush) 10 ml FLUSH ASDIRECTED PRN PRN Reason: Keep Vein Open Sodium Chloride (Saline Flush) 2.5 ml FLUSH ASDIRECTED PRN PRN Reason: Keep Vein Open Sodium Chloride (Normal Saline) 10 ml IV ASDIRECTED PRN PRN Reason: IV Use Discontinued Medications Citric Acid/Sodium Citrate (Bicitra Solution) 30 ml PO ONETIME ONE Stop: 07/14/19 05:43 Last Admin: 07/14/19 07:28 Dose: 30 ml Ephedrine Sulfate (Ephedrine Sulfate) Confirm Administered Dose 50 mg .ROUTE .[facility] ONE Stop: 07/14/19 08:02 Clindamycin Phosphate 900 mg/ (Sodium Chloride) 56 mls @ 100 mls/hr IV ONETIME ONE Stop: 07/14/19 06:20 Clindamycin Phosphate 900 mg/ (Premix) 50 mls @ 100 mls/hr IV ONETIME ONE Stop: 07/14/19 06:29 Last Admin: 07/14/19 19:29 Dose: Not Given Sodium Chloride (Normal Saline) Confirm Administered Dose 20 mls @ as directed .ROUTE .[facility] ONE Stop: 07/14/19 08:02 Ketorolac Tromethamine (Toradol) Confirm Administered Dose 30 mg .ROUTE .STK- MED ONE Stop: 07/14/19 07:15 Morphine Sulfate (Duramorph Pf) Confirm Administered Dose 10 mg .ROUTE .STK-MED ONE Stop: 07/14/19 07:40 Ondansetron HCl (Zofran) Confirm Administered Dose 4 mg .ROUTE .STK-MED ONE Stop: 07/14/19 07:12 Oxytocin (Pitocin) Confirm Administered Dose 10 unit .ROUTE .STK-MED ONE Stop: 07/14/19 07:12 Oxytocin (Pitocin) Confirm Administered Dose 10 unit .ROUTE .STK-MED ONE Stop: 07/14/19 07:12 Phenylephrine HCl (Phenylephrine In Ns 100 Mcg/Ml) Confirm Administered Dose 1 mg .ROUTE .STK-MED ONE Stop: 07/14/19 07:12 - Infant Interaction Support Person: - Recovery Exam Fundal Tone: Firm Fundal Level: 1 Fingerbreadths Below Umbilicus Fundal Placement: Midline Lochia Amount: Small Lochia Color: Rubra/Red Perineum Description: Intact, Minimal Bruising/Swelling Episiotomy/Laceration: None Bladder Status: Indwelling Catheter in Place Urinary Elimination: Indwelling Catheter - Exam General: Alert, Oriented Lungs: Normal Respiratory Effort Cardiovascular: Regular Rate, Regular Rhythm GI/Abdominal Exam: Normal Bowel Sounds, Soft Extremities: Pedal Edema (1+). No: Harsha's Sign Skin: Warm, Dry, Intact Wound/Incisions: Dressing Dry and Intact Neurological: No New Focal Deficit Psy/Mental Status: Alert, Normal Affect, Normal Mood - Problem List & Annotations (1) S/P repeat low transverse SNOMED Code(s): 186588233, 50468601, 234561139, 258633914, 765079960 Code(s): Z98.891 - HISTORY OF UTERINE SCAR FROM PREVIOUS SURGERY Status: Acute Current Visit: Yes - Problem List Review Problem List Initiated/Reviewed/Updated: Yes - My Orders Last 24 Hours: My Active Orders 07/14/19 09:08 Patient Status [ADT] Routine Ambulate [RC] PER UNIT ROUTINE Antiembolic Devices [RC] PER UNIT ROUTINE Communication Order [RC] PER UNIT ROUTINE Communication Order [RC] PER UNIT ROUTINE Communication Order [RC] Per Unit Routine May Shower [RC] ASDIRECTED Notify Provider Intake and Out [RC] ASDIRECTED Notify Provider Vital Signs [RC] ASDIRECTED RT Incentive Spirometry [RC] Q2HWA Vital Signs [RC] Q1H Acetaminophen/oxyCODONE [Percocet 325-5 MG] 1 tab PO Q4H PRN Acetaminophen/oxyCODONE [Percocet 325-5 MG] 2 tab PO Q4H PRN Alum Hydrox/Mag Hydrox/Simeth [Mag-Al Plus] 30 ml PO Q8H PRN Bisacodyl [Dulcolax] 10 mg RECTAL ONETIME PRN Ibuprofen [Motrin] 800 mg PO Q8H PRN Lanolin [Lansinoh HPA] See Dose Instructions TOP ASDIRECTED PRN Ondansetron [Zofran] 4 mg IVPUSH Q4H PRN diphenhydrAMINE [Benadryl] 25 mg IVPUSH Q6H PRN Abdominal Binder [OM.PC] Routine Assess Lochia [WOMSER] Per Unit Routine Assess Uterine Involution [WOMSER] Per Unit Routine Breast Pump [WOMSER] Per Unit Routine Heat Therapy [OM.PC] Routine Ice Therapy [OM.PC] Routine Peripheral IV Discontinue [OM.PC] Routine Sequential Compression Device [OM.PC] Per Unit Routine 07/14/19 09:15 Ketorolac [Toradol] 30 mg IVPUSH Q6H Lactated Ringers [Ringers, Lactated] 1,000 ml IV ASDIRECTED 07/14/19 10:00 Notify Provider Vital Signs [RC] PRN 07/14/19 12:00 Simethicone 160 mg PO QID 09/17/19 21:00 Docusate Sodium [Colace] 100 mg PO BID 07/14/19 Lunch Regular Diet [DIET] - Assessment Assessment:: POD 1 status post repeat c section Gestational HTN - Plan Plan:: Doing well overall, BPs overall normal. Some mildly elevated so will continue to monitor. Ambulate halls today and may shower
[2019-07-15] MEDS: Docusate Sodium 100 MG Cap PO SCH ×2 (09:32→20:53)
[2019-07-15] MEDS ORDERED: Ketorolac 30 MG/ML SDV ONE (11:26)
[2019-07-16] MEDS: Simethicone 80 MG Tab.Chew PO SCH ×3 (01:14→12:36)
[2019-07-16] MEDS: Acetaminophen/oxyCODONE 325-5 MG Tab PO PRN ×2 (06:32→12:36)
--- NOTE | 2019-07-16 08:48 | PCM.PNPP ---
- General Info Date of Service: 07/16/19 Functional Status: Reports: Pain Controlled, Tolerating Diet, Ambulating, Urinating - Review of Systems General: Denies: Fever, Weakness, Fatigue Pulmonary: Denies: Shortness of Breath Cardiovascular: Denies: Chest Pain, Palpitations Gastrointestinal: Reports: Flatus. Denies: Abdominal Pain, Nausea, Vomiting Genitourinary: Denies: Flank Pain Musculoskeletal: Reports: No Symptoms Skin: Reports: No Symptoms Neurological: Reports: No Symptoms Psychiatric: Reports: No Symptoms - General Info Date of Service: 07/16/19 - Patient Data Vital Signs - Most Recent: Last Vital Signs Temp 36.5 C 07/16/19 07:18 Pulse 64 07/16/19 07:18 Resp 19 07/16/19 07:18 BP 134/73 07/16/19 07:18 Pulse Ox 99 07/16/19 07:18 Weight - Most Recent: 109.769 kg Med Orders - Current: Current Medications Al Hydroxide/Mg Hydroxide (Mag-Al Plus) 30 ml PO Q8H PRN PRN Reason: Heartburn Bisacodyl (Dulcolax) 10 mg RECTAL ONETIME PRN PRN Reason: Constipation Diphenhydramine HCl (Benadryl) 25 mg IVPUSH Q6H PRN PRN Reason: Itching or Nausea Docusate Sodium (Colace) 100 mg PO BID [facility] Last Admin: 07/15/19 20:53 Dose: 100 mg Emollient Ointment (Lansinoh Hpa) 0 gm TOP ASDIRECTED PRN PRN Reason: Sore Nipples Lactated Ringer's (Ringers, Lactated) 1,000 mls @ 500 mls/hr IV BOLUS [facility] Last Admin: 07/14/19 07:36 Dose: 500 mls/hr Oxytocin/Sodium Chloride (Oxytocin 30 Unit/500 Ml-Ns) 30 unit in 500 mls @ 250 mls/hr IV TITRATE [facility] Lactated Ringer's (Ringers, Lactated) 1,000 mls @ 125 mls/hr IV ASDIRECTED [facility] Last Admin: 07/14/19 16:00 Dose: 125 mls/hr Ibuprofen (Motrin) 800 mg PO Q8H PRN PRN Reason: mild pain or fever Last Admin: 07/15/19 20:03 Dose: 800 mg Ondansetron HCl (Zofran) 4 mg IVPUSH Q4H PRN PRN Reason: Nausea/Vomiting Last Admin: 07/14/19 17:16 Dose: 4 mg Oxycodone/Acetaminophen (Percocet 325-5 Mg) 1 tab PO Q4H PRN PRN Reason: Pain (moderate 4-6) Last Admin: 07/16/19 06:32 Dose: 1 tab Oxycodone/Acetaminophen (Percocet 325-5 Mg) 2 tab PO Q4H PRN PRN Reason: Pain (moderate 4-6) Promethazine HCl (Phenergan) 25 mg IM Q6H PRN PRN Reason: Vomiting Last Admin: 07/14/19 20:01 Dose: 25 mg Simethicone (Simethicone) 160 mg PO QID [facility] Last Admin: 07/16/19 06:33 Dose: 160 mg Sodium Chloride (Saline Flush) 10 ml FLUSH ASDIRECTED PRN PRN Reason: Keep Vein Open Sodium Chloride (Saline Flush) 2.5 ml FLUSH ASDIRECTED PRN PRN Reason: Keep Vein Open Sodium Chloride (Normal Saline) 10 ml IV ASDIRECTED PRN PRN Reason: IV Use Discontinued Medications Citric Acid/Sodium Citrate (Bicitra Solution) 30 ml PO ONETIME ONE Stop: 07/14/19 05:43 Last Admin: 07/14/19 07:28 Dose: 30 ml Ephedrine Sulfate (Ephedrine Sulfate) Confirm Administered Dose 50 mg .ROUTE .STK-MED ONE Stop: 07/14/19 08:02 Clindamycin Phosphate 900 mg/ (Sodium Chloride) 56 mls @ 100 mls/hr IV ONETIME ONE Stop: 07/14/19 06:20 Clindamycin Phosphate 900 mg/ (Premix) 50 mls @ 100 mls/hr IV ONETIME ONE Stop: 07/14/19 06:29 Last Admin: 07/14/19 19:29 Dose: Not Given Sodium Chloride (Normal Saline) Confirm Administered Dose 20 mls @ as directed .ROUTE .STK-MED ONE Stop: 07/14/19 08:02 Ketorolac Tromethamine (Toradol) Confirm Administered Dose 30 mg .ROUTE .STK- MED ONE Stop: 07/14/19 07:15 Ketorolac Tromethamine (Toradol) 30 mg IVPUSH Q6H [facility] Stop: 07/15/19 09:16 Last Admin: 07/15/19 11:31 Dose: 30 mg Ketorolac Tromethamine (Toradol) Confirm Administered Dose 30 mg .ROUTE .STK- MED ONE Stop: 07/15/19 11:27 Last Admin: 07/15/19 11:31 Dose: Not Given Morphine Sulfate (Duramorph Pf) Confirm Administered Dose 10 mg .ROUTE .STK-MED ONE Stop: 07/14/19 07:40 Ondansetron HCl (Zofran) Confirm Administered Dose 4 mg .ROUTE .STK-MED ONE Stop: 07/14/19 07:12 Oxytocin (Pitocin) Confirm Administered Dose 10 unit .ROUTE .STK-MED ONE Stop: 07/14/19 07:12 Oxytocin (Pitocin) Confirm Administered Dose 10 unit .ROUTE .STK-MED ONE Stop: 07/14/19 07:12 Phenylephrine HCl (Phenylephrine In Ns 100 Mcg/Ml) Confirm Administered Dose 1 mg .ROUTE .STK-MED ONE Stop: 07/14/19 07:12 - Infant Interaction Support Person: - Recovery Exam Fundal Tone: Firm Fundal Level: 1 Fingerbreadths Below Umbilicus Fundal Placement: Midline Lochia Amount: Scant Lochia Color: Rubra/Red Perineum Description: Intact, Minimal Bruising/Swelling Episiotomy/Laceration: None Bladder Status: Voiding Urinary Elimination: Voided - Exam General: Alert, Oriented Lungs: Normal Respiratory Effort Cardiovascular: Regular Rate, Regular Rhythm GI/Abdominal Exam: Normal Bowel Sounds, Soft Extremities: Pedal Edema (1+). No: Harsha's Sign Skin: Warm, Dry, Intact Wound/Incisions: Healing Well. No: No Drainage Neurological: No New Focal Deficit Psy/Mental Status: Alert, Normal Affect, Normal Mood - Problem List & Annotations (1) S/P repeat low transverse SNOMED Code(s): 682408836, 38184082, 964609386, 653673024, 987262041 Code(s): Z98.891 - HISTORY OF UTERINE SCAR FROM PREVIOUS SURGERY Status: Acute Current Visit: Yes - Problem List Review Problem List Initiated/Reviewed/Updated: Yes - My Orders Last 24 Hours: My Active Orders 07/16/19 08:45 Ready for Discharge [RC] PER UNIT ROUTINE - Assessment Assessment:: POD 2 status post repeat c section Gestational HTN - Plan Plan:: Patient is doing well. She would like to go home today. is going well. Blood pressures remain normal. She will continue to monitor these at home and call if greater than 140/90 Discharge to home today if baby's bili level is acceptable. Discharge instructions reviewed. Follow up at [facility] 2 and 6 weeks.
[2019-07-16] MEDS: Docusate Sodium 100 MG Cap PO SCH (09:56)
== END 2019-07-16 13:05 | disposition home or self-care (01) | DRG 540 ==
LOC: MW.OBCHECK 05:19 → MW.OB 05:20 → MW.OBCHECK 08:15 → MW.OB 13:30
PROVIDERS: ADMIT Obstetrics & Gynecology; ATTEND Obstetrics & Gynecology
PROC: 10D00Z1 Extraction of Products of Conception, Low, Open Approach (ICD-10-PCS; principal; 2019-07-14)
DX: O13.4 Gestational [pregnancy-induced] hypertension without significant proteinuria, complicating childbirth (principal); O34.211 Maternal care for low transverse scar from previous cesarean delivery; Z3A.37 37 weeks gestation of pregnancy; Z37.0 Single live birth
CPT/HCPCS: 36415; 59025; 82803; 85014; 85018; 85027; 86850; 86900; 86901; A9270-GY; J1885; J2270; J2370; J2405; J2550; J2590; J7120